=== PATIENT | female | born 1985 | race Two or more races ===

== ENCOUNTER 2019-08-21 13:59 | Emergency (ER) | payer BC, MEDICAID ==
[~2019-08-21] VITALS: Ht 157.5 cm; Wt 77.1 kg
[2019-08-21 16:05] LABS: Urine Bacteria FEW /hpf (None Seen); Urine Blood Negative /uL (Negative); Urine Specific Gravity 1.015 (1.001-1.035); Urine WBC 1 /hpf (0 - 5)
[2019-08-21] MEDS ORDERED: FOLIC ACID 1 MG TAB PO ONE (16:30)
[2019-08-21 20:00] VITALS: BP 110/69
== END 2019-08-21 20:31 | disposition home or self-care (01) ==
LOC: ER 14:06
DX: O26.891 Other specified pregnancy related conditions, first trimester (principal); R10.33 Periumbilical pain; O99.331 Smoking (tobacco) complicating pregnancy, first trimester; F17.210 Nicotine dependence, cigarettes, uncomplicated; Z3A.01 Less than 8 weeks gestation of pregnancy
CPT/HCPCS: 36415; 76801; 81001; 81025; 84702

== ENCOUNTER 2019-09-16 12:11 | Emergency (ER) | payer BC, MEDICAID ==
[~2019-09-16] VITALS: Ht 157.5 cm; Wt 77.1 kg
[2019-09-16 12:18] VITALS: BP 113/66
== END 2019-09-16 14:25 | disposition home or self-care (01) ==
LOC: ER 12:11
DX: O99.511 Diseases of the respiratory system complicating pregnancy, first trimester (principal); J20.9 Acute bronchitis, unspecified; O99.331 Smoking (tobacco) complicating pregnancy, first trimester; F17.210 Nicotine dependence, cigarettes, uncomplicated; Z3A.10 10 weeks gestation of pregnancy

== ENCOUNTER → 2019-09-25 | Emergency (ER) | payer BC, MEDICAID ==
[~2019-09-25] VITALS: Ht 157.5 cm; Wt 77.1 kg
[2019-09-25 12:55] VITALS: BP 93/51
[2019-09-25 13:37] LABS: Basophils # (auto) 0.1 10 ^3/uL (0-0.2); Basophils % (auto) 0.9 % (0.0-2.0); Eosinophils # (auto) 0.2 10 ^3/uL (0-0.8); Eosinophils % (auto) 2.5 % (0.0-7.0); Hematocrit 34.6 % (36.0-46.0); Lymphocytes # (auto) 1.7 10 ^3/uL (0.4-5.4); Lymphocytes % (auto) 17.8 % (10.0-50.0); Mean Corpuscular Hemoglobin 31.4 pg (28.0-32.0); Mean Corpuscular Hgb Conc. 34.8 g/dL (32.0-36.0); Mean Corpuscular Volume 90.1 fL (80.0-100.0); Monocytes % (auto) 10.2 % (0.0-12.0); Neutrophils # (auto) 6.6 10 ^3/uL (1.6-8.6); Neutrophils % (auto) 68.6 % (37.0-80.0); Platelet Count (auto) 291 10^3/uL (140-450); Red Blood Cells 3.84 10^6/uL (4.0-5.20); Red Cell Distribution Width 12.8 % (11.8-14.3); White Blood Cell 9.6 10^3/uL (4.4-10.8)
== END | disposition home or self-care (01) ==
LOC: ER 12:30
DX: O20.0 Threatened abortion (principal); O99.331 Smoking (tobacco) complicating pregnancy, first trimester; F17.210 Nicotine dependence, cigarettes, uncomplicated; Z3A.11 11 weeks gestation of pregnancy
CPT/HCPCS: 36415; 76801; 84702; 85025

== ENCOUNTER 2019-12-14 18:25 | Observation (INO) | payer BC, MEDICAID | END 2019-12-14 19:13 | disposition home or self-care (01) | DRG 833 | LOC: LDRP 18:25 | PROVIDERS: ADMIT Specialist; ATTEND Specialist | DX: O26.892 Other specified pregnancy related conditions, second trimester (principal); R10.32 Left lower quadrant pain; Z3A.22 22 weeks gestation of pregnancy | CPT/HCPCS: 59025; 81002; G0378 ==

== ENCOUNTER 2020-04-13 09:49 | Emergency (ER) | payer BC, MEDICAID ==
[~2020-04-13] VITALS: Ht 157.5 cm; Wt 86.2 kg
[2020-04-13 10:24] LABS: Hematocrit 27.8 % (36.0-46.0); Hemoglobin 9.1 g/dL (12.2-16.2); Mean Corpuscular Hemoglobin 27.9 pg (28.0-32.0); Mean Corpuscular Hgb Conc. 32.9 g/dL (32.0-36.0); Mean Corpuscular Volume 84.9 fL (80.0-100.0); Platelet Count (auto) 385 10^3/uL (140-450); Red Blood Cells 3.27 10^6/uL (4.0-5.20); White Blood Cell 9.3 10^3/uL (4.4-10.8)
[2020-04-13 10:47] LABS: Albumin 2.6 g/dL (3.4-5.0); Chloride 111 mmol/L (98-107); Potassium 3.7 mmol/L (3.5-5.1); Sodium 141 mmol/L (136-145)
[2020-04-13 10:49] LABS: Band Neutrophils % (manual) 0; Basophils % (manual) 0 (0.0-2.0); Blast Cells 0; Metamyelocytes % 0; Promyelocytes % 0; Reactive Lymphocytes 0
[2020-04-13 10:57] LABS: Alanine Aminotransferase 99 U/L (13-56); Alkaline Phosphatase 110 U/L (45-117); Anion Gap 6 (5-15); Aspartate Aminotransferase 34 U/L (15-37); BUN/Creatinine Ratio 17.1; Bilirubin, Total 0.3 mg/dL (0.2-1.0); Blood Urea Nitrogen 12 mg/dL (7-18); Carbon Dioxide 24 mmol/L (21-32); GFR African American 122 mL/min; GFR Non-African American 101 mL/min; Glucose 76 mg/dL (74-106); Magnesium 2.3 mg/dL (1.6-2.6); Total Protein 5.9 g/dL (6.4-8.2)
[2020-04-13 11:12] LABS: Eosinophils % (manual) 5 (0-7); Lymphocytes % (manual) 14 (10.0-50.0); Monocytes % (manual) 6 (0-12); Myelocytes % 2
[2020-04-13 11:41] LABS: Urine Bacteria NONE SEEN /hpf (None Seen); Urine Blood 3+ /uL (Negative); Urine Budding Yeast OCCASIONAL /hpf (None Seen); Urine Mucus FEW (None Seen); Urine Specific Gravity 1.017 (1.001-1.035); Urine WBC 116 /hpf (0 - 5)
[2020-04-13 12:00] VITALS: BP 117/72
[2020-04-13] MEDS ORDERED: cefTRIAXone 1GM/50ML D5W 50 ML IV ONE (12:45)
[2020-04-13] MEDS ORDERED: SODIUM CHLORIDE 0.9% 250 ML IV ONE (12:45)
[2020-04-13] MEDS ORDERED: cefTRIAXone W LIDOCAINE 1 GM IM IM ONE (13:00)
== END 2020-04-13 15:00 | disposition home or self-care (01) ==
LOC: ER 09:49
DX: N39.0 Urinary tract infection, site not specified (principal); R60.0 Localized edema; E46 Unspecified protein-calorie malnutrition; Z90.49 Acquired absence of other specified parts of digestive tract
CPT/HCPCS: 36415; 71046; 80053; 81001; 83735; 83880; 84484; 85007; 85027; 93005; 96372; 99285; J0696

== ENCOUNTER 2022-03-20 05:06 | Inpatient (IN) | payer BC, MEDICAID ==
[~2022-03-20] VITALS: Ht 157.5 cm; Wt 86.3 kg
[2022-03-20 07:16] LABS: Eosinophils # (auto) 0 10 ^3/uL (0-0.8); Lymphocytes # (auto) 1.2 10 ^3/uL (0.4-5.4); Mean Corpuscular Volume 70.7 fL (80.0-100.0); Monocytes # (auto) 0.8 10 ^3/uL (0-1.3); Neutrophils # (auto) 4.9 10 ^3/uL (1.6-8.6); White Blood Cell 6.9 10^3/uL (4.4-10.8)
[2022-03-20 07:19] LABS: Basophils # (auto) 0.1 10 ^3/uL (0-0.2); Basophils % (auto) 0.9 % (0.0-2.0); Eosinophils % (auto) 0.3 % (0.0-7.0); Hematocrit 28.6 % (36.0-46.0); Lymphocytes % (auto) 17.3 % (10.0-50.0); Mean Corpuscular Hemoglobin 22.2 pg (28.0-32.0); Mean Corpuscular Hgb Conc. 31.5 g/dL (32.0-36.0); Monocytes % (auto) 11.1 % (0.0-12.0); Neutrophils % (auto) 70.4 % (37.0-80.0); Red Blood Cells 4.05 10^6/uL (4.0-5.20); Red Cell Distribution Width 17.2 % (11.8-14.3)
[2022-03-20 07:27] LABS: Albumin 3.8 g/dL (3.4-5.0); Calcium 7.9 mg/dL (8.5-10.1); Potassium 4.4 mmol/L (3.5-5.1)
[2022-03-20 07:30] LABS: BUN/Creatinine Ratio 19.4; Bilirubin, Total 0.4 mg/dL (0.2-1.0); Total Protein 6.7 g/dL (6.4-8.2)
[2022-03-20] MEDS ORDERED: MORPHINE SULFATE 4 MG/ML SYR/VIAL IV ONE (10:30)
[2022-03-20 11:02] LABS: INR 1.03 (0.9-1.15); Partial Thromboplastin Time 27.7 sec (24.6-33.4)
[2022-03-20 11:59] LABS: Urine Bacteria FEW /hpf (None Seen); Urine Blood Negative /uL (Negative); Urine Specific Gravity 1.009 (1.001-1.035); Urine WBC 2 /hpf (0 - 5)
[2022-03-20] MEDS ORDERED: ceFAZolin 1GM/50ML 100 ML IV ONE (13:59)
[2022-03-20] MEDS ORDERED: MEPERIDINE HCL (50 MG/ML) 1 ML VIAL ONE (14:17)
[2022-03-20] MEDS ORDERED: fentaNYL CITRATE 100 MCG/2 ML VL ONE (14:17)
[2022-03-20] MEDS ORDERED: SUCCINYLCHOLINE CHLORIDE 20 MG/ML 10ML VIAL IV ONE (14:18)
[2022-03-20] MEDS ORDERED: BUPIVACAINE W/ EPINEPH 0.5% INJ 50ML MDV IJ ONE (14:18)
[2022-03-20] MEDS ORDERED: MIDAZOLAM HCL 2MG/2ML 2ml VIAL (1mg/ml) ONE (14:18)
[2022-03-20] MEDS ORDERED: POVIDONE IODINE 10 % TOPICAL OINT 30GM TOP ONE (14:18)
[2022-03-20] MEDS ORDERED: DexAMETHasone SOD PHOS 10MG/1ML VIAL INJ ONE (14:36)
[2022-03-20] MEDS ORDERED: ONDANSETRON HCL 4 MG/2 ML VIAL IV PRN ×3 (15:00→15:30)
[2022-03-20] MEDS ORDERED: LABETALOL HCL 5 MG/ML 4ML SYRINGE IV PRN (15:00)
[2022-03-20] MEDS ORDERED: ePHEDrine SULFATE 50 MG/ML AMP IV PRN (15:00)
[2022-03-20] MEDS ORDERED: MORPHINE SULFATE 4 MG/ML SYR/VIAL IV PRN (15:00)
[2022-03-20] MEDS ORDERED: MIDAZOLAM HCL 2MG/2ML 2ml VIAL (1mg/ml) IV PRN (15:00)
[2022-03-20] MEDS ORDERED: PROPOFOL 10 MG/ML 20 ML IV ONE (15:02)
[2022-03-20] MEDS ORDERED: ONDANSETRON HCL 4 MG/2 ML VIAL ONE (15:02)
[2022-03-20] MEDS ORDERED: ROCURONIUM 10MG/ML 10ML VIAL IV ONE (15:02)
[2022-03-20] MEDS ORDERED: SUGAMMADEX 200mg/2ml Vial (100MG/ML) IV ONE (15:09)
[2022-03-20] MEDS ORDERED: HYDR-4902 PO (15:19)
[2022-03-20] MEDS ORDERED: IBUP800T27 PO (15:19)
[2022-03-20] MEDS ORDERED: DOCU-94 PO (15:19)
[2022-03-20] MEDS ORDERED: ONDA-144 PO (15:19)
[2022-03-20] MEDS ORDERED: NITROGLYCERIN 0.4 MG SL TAB SL PRN (15:30)
[2022-03-20] MEDS ORDERED: MORPHINE SULFATE INJ 2 MG/ml SYRG IV PRN ×2 (15:30)
[2022-03-20] MEDS: HYDROmorphone HCL 2 MG/ML VL/or syr IV PRN ×3 (15:51→20:19)
[2022-03-20] MEDS ORDERED: LACTATED RINGER'S 1,000 ML IV ONE (16:00)
[2022-03-20] MEDS ORDERED: ePHEDrine SULFATE 50 MG/ML AMP IV ONE (16:42)
[2022-03-20 20:16] VITALS: BP 111/63
[2022-03-20] MEDS: ceFAZolin 1GM/50ML 50 ML IV SCH (20:33)
[2022-03-20] MEDS: SODIUM CHLORIDE 0.9% 1,000 ML IV SCH (23:15)
[2022-03-21 03:20] VITALS: BP 141/69
[2022-03-21] MEDS: HYDROmorphone HCL 2 MG/ML VL/or syr IV PRN (03:22)
[2022-03-21 04:48] VITALS: BP 109/66
[2022-03-21] MEDS: SODIUM CHLORIDE 0.9% 1,000 ML IV SCH ×2 (05:10→16:34)
[2022-03-21] MEDS: ceFAZolin 1GM/50ML 50 ML IV SCH ×2 (05:34→13:35)
[2022-03-21 05:38] LABS: Basophils # (auto) 0 10 ^3/uL (0-0.2); Eosinophils # (auto) 0 10 ^3/uL (0-0.8); Hematocrit 29.2 % (36.0-46.0); Lymphocytes # (auto) 0.5 10 ^3/uL (0.4-5.4)
[2022-03-21 05:39] LABS: Basophils % (auto) 0.5 % (0.0-2.0); Eosinophils % (auto) 0.5 % (0.0-7.0); Hemoglobin 9.2 g/dL (12.2-16.2); Lymphocytes % (auto) 7.8 % (10.0-50.0); Mean Corpuscular Hemoglobin 22.4 pg (28.0-32.0); Mean Corpuscular Hgb Conc. 31.6 g/dL (32.0-36.0); Mean Corpuscular Volume 70.9 fL (80.0-100.0); Monocytes # (auto) 0.6 10 ^3/uL (0-1.3); Monocytes % (auto) 8.6 % (0.0-12.0); Neutrophils # (auto) 5.5 10 ^3/uL (1.6-8.6); Neutrophils % (auto) 82.6 % (37.0-80.0); Red Blood Cells 4.12 10^6/uL (4.0-5.20); White Blood Cell 6.7 10^3/uL (4.4-10.8)
[2022-03-21] MEDS: SIMETHICONE 80 MG CHEWABLE TABLET PO SCH ×3 (05:57→21:38)
[2022-03-21] MEDS: ACETAMINOPHEN 325 MG TAB PO PRN ×2 (08:04→18:37)
[2022-03-21] MEDS: DOCUSATE SOD 100 MG CAP PO SCH ×2 (08:05→21:38)
[2022-03-21] MEDS: HYDROcodone-ACET 10/325MG TAB PO PRN ×3 (08:05→16:44)
[2022-03-21 09:00] VITALS: BP 114/64
[2022-03-21 13:00] VITALS: BP 109/64
[2022-03-21] MEDS ORDERED: ONDANSETRON HCL 4 MG/2 ML VIAL IV PRN ×2 (17:00→17:15)
[2022-03-21 17:02] VITALS: BP 121/58
[2022-03-21] MEDS: PIPERACILLIN-TAZOB 3.375GM 100 ML IV SCH (17:52)
[2022-03-21 22:00] VITALS: BP 112/76
[2022-03-22] MEDS: PIPERACILLIN-TAZOB 3.375GM 100 ML IV SCH ×5 (00:30→23:01)
[2022-03-22] MEDS: ACETAMINOPHEN 325 MG TAB PO PRN (04:31)
[2022-03-22] MEDS: SODIUM CHLORIDE 0.9% 1,000 ML IV SCH ×4 (04:47→22:56)
[2022-03-22 05:00] VITALS: BP 103/64
[2022-03-22] MEDS: SIMETHICONE 80 MG CHEWABLE TABLET PO SCH ×3 (06:05→22:55)
[2022-03-22 06:14] LABS: Potassium 3.4 mmol/L (3.5-5.1)
[2022-03-22 06:17] LABS: Albumin 3.1 g/dL (3.4-5.0); BUN/Creatinine Ratio 7.4
[2022-03-22 06:19] LABS: Bilirubin, Total 0.5 mg/dL (0.2-1.0); Total Protein 5.8 g/dL (6.4-8.2)
[2022-03-22 06:24] LABS: % Iron Saturation 2.8 % (15-50)
[2022-03-22 06:28] LABS: Basophils # (auto) 0 10 ^3/uL (0-0.2); Basophils % (auto) 1.2 % (0.0-2.0); Eosinophils # (auto) 0 10 ^3/uL (0-0.8); Eosinophils % (auto) 0.1 % (0.0-7.0); Hematocrit 27.7 % (36.0-46.0); Hemoglobin 8.7 g/dL (12.2-16.2); Lymphocytes # (auto) 0.4 10 ^3/uL (0.4-5.4); Mean Corpuscular Hgb Conc. 31.4 g/dL (32.0-36.0); Monocytes # (auto) 0.5 10 ^3/uL (0-1.3); Monocytes % (auto) 14.5 % (0.0-12.0); Neutrophils # (auto) 2.4 10 ^3/uL (1.6-8.6); Neutrophils % (auto) 71.2 % (37.0-80.0); Red Blood Cells 3.95 10^6/uL (4.0-5.20); Red Cell Distribution Width 17.3 % (11.8-14.3); White Blood Cell 3.4 10^3/uL (4.4-10.8)
[2022-03-22 07:45] LABS: Urine Bacteria FEW /hpf (None Seen); Urine Blood 3+ /uL (Negative); Urine Specific Gravity 1.004 (1.001-1.035); Urine WBC 1 /hpf (0 - 5)
[2022-03-22] MEDS ORDERED: POTASSIUM CHL 20 Meq TABLET PO ONE ×2 (07:45→09:45)
[2022-03-22 08:00] VITALS: BP 103/59
[2022-03-22 08:15] VITALS: BP 103/59
[2022-03-22] MEDS ORDERED: IOHEXOL 300 MG/ML 100ML BOTTLE IJ ONE (08:24)
[2022-03-22] MEDS ORDERED: cefTRIAXone 1GM/50ML D5W 50 ML IV SCH (09:00)
[2022-03-22] MEDS: DOCUSATE SOD 100 MG CAP PO SCH ×2 (09:08→22:56)
[2022-03-22] MEDS: HYDROcodone-ACET 10/325MG TAB PO PRN ×2 (09:45→15:31)
[2022-03-22 12:00] VITALS: BP 92/55
[2022-03-22 16:00] VITALS: BP 100/59
[2022-03-22 22:00] VITALS: BP 100/61
[2022-03-23] MEDS: HYDROcodone-ACET 10/325MG TAB PO PRN ×3 (00:32→09:35)
[2022-03-23 04:59] LABS: Basophils # (auto) 0.1 10 ^3/uL (0-0.2); Eosinophils # (auto) 0.2 10 ^3/uL (0-0.8); Hemoglobin 8.9 g/dL (12.2-16.2); Lymphocytes # (auto) 1.2 10 ^3/uL (0.4-5.4); Monocytes # (auto) 0.6 10 ^3/uL (0-1.3); Neutrophils # (auto) 2.3 10 ^3/uL (1.6-8.6); Nucleated Red Blood Cells % 0.1 %
[2022-03-23 05:00] VITALS: BP 114/68
[2022-03-23 05:04] LABS: Basophils % (auto) 1.3 % (0.0-2.0); Eosinophils % (auto) 3.9 % (0.0-7.0); Hematocrit 28.2 % (36.0-46.0); Lymphocytes % (auto) 27.5 % (10.0-50.0); Mean Corpuscular Hgb Conc. 31.5 g/dL (32.0-36.0); Monocytes % (auto) 14.9 % (0.0-12.0); Neutrophils % (auto) 52.4 % (37.0-80.0); Red Blood Cells 4.03 10^6/uL (4.0-5.20); Red Cell Distribution Width 17.2 % (11.8-14.3); White Blood Cell 4.3 10^3/uL (4.4-10.8)
[2022-03-23 05:26] LABS: Albumin 3.2 g/dL (3.4-5.0); Calcium 8.1 mg/dL (8.5-10.1); Potassium 3.6 mmol/L (3.5-5.1)
[2022-03-23] MEDS: PIPERACILLIN-TAZOB 3.375GM 100 ML IV SCH ×2 (05:26→12:15)
[2022-03-23 05:29] LABS: Bilirubin, Total 0.4 mg/dL (0.2-1.0); Total Protein 6.4 g/dL (6.4-8.2)
[2022-03-23] MEDS: SIMETHICONE 80 MG CHEWABLE TABLET PO SCH ×2 (05:35→15:03)
[2022-03-23 09:00] VITALS: BP 116/70
[2022-03-23] MEDS: DOCUSATE SOD 100 MG CAP PO SCH (09:35)
[2022-03-23] MEDS ORDERED: HYDROcodone-ACET 10/325MG TAB PO PRN (10:45)
[2022-03-23] MEDS ORDERED: FERROUS SULFATE 325mg EC TAB PO ONE (10:45)
[2022-03-23] MEDS: SODIUM CHLORIDE 0.9% 1,000 ML IV SCH (11:18)
[2022-03-23] MEDS ORDERED: FER325T PO (12:52)
[2022-03-23] MEDS ORDERED: CIPR-173 PO (12:52)
[2022-03-23 13:00] VITALS: BP 104/61
[2022-03-23 14:14] VITALS: BP 116/70
[2022-03-23] MEDS ORDERED: FERROUS SULFATE 325mg EC TAB PO SCH (18:00)
== END 2022-03-23 17:00 | disposition home or self-care (01) | DRG 710 ==
LOC: ER 05:06 → TELE 15:38 → TELE-CENTR 18:55 → CENTRAL 03-23 12:52
PROVIDERS: ADMIT Obstetrics & Gynecology; ATTEND Internal Medicine
PROC: 0UB10ZZ Excision of Left Ovary, Open Approach (ICD-10-PCS; 2022-03-20)
PROC: 0UB60ZZ Excision of Left Fallopian Tube, Open Approach (ICD-10-PCS; principal; 2022-03-20 14:21)
DX: A41.9 Sepsis, unspecified organism (principal); D64.9 Anemia, unspecified; N83.292 Other ovarian cyst, left side; E66.9 Obesity, unspecified; E87.6 Hypokalemia; Z20.822 Contact with and (suspected) exposure to COVID-19; Z90.49 Acquired absence of other specified parts of digestive tract; Z68.34 Body mass index [BMI] 34.0-34.9, adult; N83.512 Torsion of left ovary and ovarian pedicle; N92.6 Irregular menstruation, unspecified
CPT/HCPCS: 36415; 71045; 74177; 76830; 76856; 80053; 81001; 81025; 83540; 83550; 83605; 84702; 85025; 85610; 85730; 86850; 86900; 86901; 86920; 87040; 87086; 93005; 93306; 96365; 96375; G0378; J0330; J0690; J0696; J1100; J2250; J2405; J2543; J2704